=== PATIENT | female | born 1950 | race Caucasian/White ===

== ENCOUNTER 2021-09-22 12:09 | Outpatient (CLI) | payer MEDICARE, OTHER ==
[2021-09-22 12:41] LABS: CREATININE 1.8 mg/dL (0.4-1.0); POTASSIUM 4.5 mmol/L (3.5-5.0)
== END 2021-09-22 12:10 | disposition home or self-care (01) ==
LOC: LAB 12:09
PROVIDERS: ATTEND Family Medicine
DX: I10 Essential (primary) hypertension (principal)
CPT/HCPCS: 36415; 82565; 84132

== ENCOUNTER 2021-10-04 13:33 | Outpatient (CLI) | payer MEDICARE, OTHER ==
[2021-10-04 13:56] LABS: POTASSIUM 4.4 mmol/L (3.5-5.0)
== END 2021-10-04 13:34 | disposition home or self-care (01) ==
LOC: LAB 13:33
PROVIDERS: ATTEND Family Medicine
DX: G25.81 Restless legs syndrome (principal); I10 Essential (primary) hypertension; M25.531 Pain in right wrist; M25.532 Pain in left wrist; M79.644 Pain in right finger(s); M79.645 Pain in left finger(s); G89.29 Other chronic pain
CPT/HCPCS: 36415; 82565; 82728; 84132

== ENCOUNTER 2023-07-25 11:44 | Emergency (ER) | payer MEDICARE, OTHER ==
--- NOTE | 2023-07-25 12:01 | ED Physician Documentation ---
PD HPI FEMALE - Stated complaint Stated Complaint: - Chief complaint Chief Complaint: UTI - History obtained from History obtained from: Patient - History of Present Illness Timing - onset: Last night Timing - details: Abrupt onset Associated symptoms: Dysuria, Urinary frequency. No: Fever, Vaginal bleeding, Vaginal discharge Similar symptoms before: Diagnosis (similar to prior UTIs) Review of Systems Constitutional: denies: Fever, Chills GI: denies: Nausea, Vomiting Skin: denies: Rash PD PAST MEDICAL HISTORY - Past Medical History Past Medical History: No - Past Surgical History Past Surgical History: Yes - Present Medications Home Medications: Ambulatory Orders Medication Instructions Recorded Confirmed Ascorbic Acid/Ascorbate Sodium 500 mg PO DAILY 07/25/23 07/25/23 [Vitamin C 500 mg Tablet Chew] Atorvastatin Calcium [Lipitor] 80 mg PO QPM 07/25/23 07/25/23 Calcium Carbonate/Vitamin D3 1 each PO BID 07/25/23 07/25/23 [Calcium 500 mg-Vit D3 600 Unit] Escitalopram [Lexapro] 10 mg PO DAILY 07/25/23 07/25/23 Iron Fum,Ps/Folic/Bcomp,C No.9 65 mg PO DAILY 07/25/23 07/25/23 [Iron Folate Plus Capsule] Lisinopril [Zestril] 10 mg PO DAILY 07/25/23 07/25/23 Omeprazole Magnesium 20 mg PO DAILY 07/25/23 07/25/23 cephALEXin [Keflex] 500 mg PO TID #20 cap 07/25/23 - Allergies Allergies/Adverse Reactions: Allergies Allergy/AdvReac Type Severity Reaction Status Date / Time Sulfa (Sulfonamide Allergy Rash Verified 07/25/23 11:50 Antibiotics) - Social History Does the pt smoke?: No Smoking Status: Never smoker Does the pt drink ETOH?: No Does the pt have substance abuse?: No - Immunizations Immunizations are current?: Yes PD ED PE NORMAL - Vitals Vital signs reviewed: Yes - General General: Alert and oriented X 3, No acute distress, Well developed/nourished - Female Female : Deferred - Back Back: No CVA TTP - Derm Derm: Normal color Results - Vitals Vitals: Oxygen O2 Source Room air - Labs Labs: Microbiology 07/25/23 11:57 Urine Culture - Final Urine,Random >100,000 COLONIES/ML Polymicrobial growth including potential pathogens. This is suggestive of skin or other contamination. Laboratory Tests 07/25/23 11:57 Urine Color ORANGE Urine Clarity CLEAR Urine pH 6.0 Ur Specific [place] 1.025 Urine Protein Urine Glucose (UA) NEGATIVE Urine Ketones NEGATIVE Urine Occult Blood Urine Nitrite Urine Bilirubin NEGATIVE Urine Urobilinogen Ur Leukocyte Esterase Urine RBC 0-5 Urine WBC >25 H Ur Squamous Epith Cells FEW Squamous Urine Bacteria Few Urine Mucus Few Strands Ur Microscopic Review INDICATED Urine Culture Comments INDICATED PD Medical Decision Making - ED course Complexity details: reviewed results, considered differential (symptoms c/w UTI and her UA is suggestive. Had taken Azo so colorimetry is altered. Pending culture but will presume UTI. ), d/w patient Departure - Departure Disposition: 01 Home, Self Care Clinical Impression: Dysuria, Cystitis Condition: Stable Record reviewed to determine appropriate education?: Yes Instructions: ED UTI Cystitis Female Prescriptions: cephALEXin [Keflex] 500 mg PO TID #20 cap Comments: Your urine test does corroborate a bladder infection along with your symptoms. We can start you on cephalexin for this. Continue with the phenazopyridine as needed. Tylenol or ibuprofen as well. Stay well-hydrated. We will do a urine culture on this and see what the results are in the next day or 2. Sometimes we need to amend the antibiotic choice based on the results. Will call you if we need to. I sent your prescription to the [facility] pharmacy. I would anticipate improvement over the next 2 to 3 days and resolved by 3 to 5 days at most. Recheck if not. Forms: PCP List Discharge Date/Time: 07/25/23 12:26
[2023-07-25 12:03] LABS: BILIRUBIN,URINE NEGATIVE (NEGATIVE); CLARITY,URINE CLEAR (CLEAR); GLUCOSE, URINE (UA) NEGATIVE (NEGATIVE); KETONES,URINE (UA) NEGATIVE (NEGATIVE)
[2023-07-25 12:08] LABS: BACTERIA,URINE Few /HPF (None Seen); MUCUS,URINE Few Strands; RBC,URINE 0-5 /HPF (0-5); SQUAMOUS EPITHELIAL CELL,UR FEW Squamous (<= Few); WBC,URINE >25 /HPF (0-5)
[2023-07-25] MEDS ORDERED: cephALEXin 250 MG CAPSULE PO STA (12:14)
[2023-07-25 12:29] VITALS: BP 144/72; O2SAT 99
== END 2023-07-25 12:26 | disposition home or self-care (01) ==
LOC: ED 11:44
DX: N30.90 Cystitis, unspecified without hematuria (principal); Z87.440 Personal history of urinary (tract) infections; Z79.899 Other long term (current) drug therapy
CPT/HCPCS: 81001; 87086; 99283; A9270; 81003